=== PATIENT | male | born 1950 | race Caucasian/White ===

== ENCOUNTER 2023-05-17 14:56 | Outpatient (REF) | payer MEDICARE, SELFPAY ==
[2023-05-17 17:31] LABS: HCT 35.4 % (40.0-50.0); HGB 11.9 g/dL (13.5-17.5); MCH 30.1 pg (27.0-33.0); MCHC 33.6 % (32.0-36.0); MCV 89 fL (80-95); MPV 10.8 fL (8.0-11.0); Platelet Count 224 10^3/uL (130-400); RBC 3.96 10^6/uL (4.36-5.78); RDW 12.5 % (11.8-14.1); RDW-SD 41.1 fL; WBC 6.47 10^3/uL (4.4-10.8)
[2023-05-17 17:53] LABS: ALT 35 U/L (16-63); AST 22 U/L (15-37); Albumin 3.3 g/dL (3.4-5.0); Alkaline Phosphatase 106 U/L (46-116); Anion Gap 7.6 mmol/L (3-11); BUN 15 mg/dL (7-18); Bilirubin, Total 0.4 mg/dL (0.2-1.0); CO2 27.4 mmol/L (21.0-32.0); Calcium 8.7 mg/dL (8.5-10.1); Chloride 100 mmol/L (98-107); Estimated GFR 79.47 (mL/min/1.73m2); Glucose 251 mg/dL (74-106); Potassium 4.4 mmol/L (3.5-5.1); Sodium 135 mmol/L (136-145); Total Protein 6.6 g/dL (6.4-8.2)
== END 2023-05-17 14:57 | disposition home or self-care (01) ==
LOC: LBN 14:56
PROVIDERS: Visit Provider Student in an Organized Health Care Education/Training Program
DX: N18.4 Chronic kidney disease, stage 4 (severe) (principal); N17.9 Acute kidney failure, unspecified; B20 Human immunodeficiency virus [HIV] disease
CPT/HCPCS: 80053; 85027